=== PATIENT | male | born 1975 | race African-American/Black ===

== ENCOUNTER 2017-04-23 18:48 | Emergency (ER) | payer MEDICAID, OTHER ==
[~2017-04-23] VITALS: Ht 424.2 cm; Wt 82.0 kg
[2017-04-23 19:40] VITALS: BP 122/85
[2017-04-23] MEDS ORDERED: BACITRACIN ZINC OINT UDPKT TOP ONE (20:30)
== END 2017-04-23 21:01 | disposition home or self-care (01) ==
LOC: ER 20:14
DX: S50.11XA Contusion of right forearm, initial encounter (principal); S41.131A Puncture wound without foreign body of right upper arm, initial encounter; J45.909 Unspecified asthma, uncomplicated; F17.200 Nicotine dependence, unspecified, uncomplicated; F14.90 Cocaine use, unspecified, uncomplicated; W22.8XXA Striking against or struck by other objects, initial encounter; Y93.89 Activity, other specified; Y92.89 Other specified places as the place of occurrence of the external cause; Y99.8 Other external cause status
CPT/HCPCS: 99283

== ENCOUNTER 2024-10-06 17:42 | Inpatient (IN) | payer SELFPAY ==
[~2024-10-06] VITALS: Ht 182.9 cm; Wt 89.0 kg
[2024-10-06 20:57] LABS: BASOPHILS % 1.1 % (0.0-2.0); EOSINOPHILS % 5.4 % (0.0-5.0); HEMATOCRIT. 36.9 % (42.0-52.0); HEMOGLOBIN. 12.3 g/dL (14.0-18.0); LYMPHOCYTES % 26.7 % (20.0-50.0); MEAN CORPUSCULAR HEMOGLOBIN 28.4 pg (28.0-32.0); MEAN CORPUSCULAR HGB CONC 33.2 g/dL (31.0-37.0); MEAN CORPUSCULAR VOLUME 85.4 fL (80.0-94.0); MEAN PLATELET VOLUME 8.6 fl (7.4-10.4); MONOCYTES % 6.8 % (2.0-8.0); PLATELET 353 x1000/uL (130-400); RED BLOOD CELL COUNT 4.33 mill/uL (4.7-6.1); RED CELL DISTRIBUTION WIDTH 15.4 % (11.6-14.6); WHITE BLOOD COUNT 11.8 x1000/uL (4.5-11.0)
[2024-10-06 21:05] LABS: CHLORIDE 105 mEq/L (98-107); POTASSIUM 3.8 mEq/L (3.5-5.1); SODIUM 138 mEq/L (136-145)
[2024-10-06 21:06] LABS: CALCIUM 9.3 mg/dL (8.7-10.4); CARBON DIOXIDE 25 mEq/L (21-32)
[2024-10-06 21:11] LABS: CREATININE 0.9 mg/dL (0.6-1.3); GLUCOSE 91 mg/dL (70-105); UREA NITROGEN BLOOD 10 mg/dL (9-23)
[2024-10-06 21:12] LABS: TROPONIN I HIGH SENSITIVITY 8 ng/L (3.0-53)
[2024-10-06 21:13] LABS: ACETAMINOPHEN < 2 ug/mL (10-30); AMMONIA 50 uMol/L (<32)
[2024-10-06 21:15] LABS: ETHANOL BLOOD < 10 mg/dL (<10)
[2024-10-06] MEDS: LORAZEPAM 2MG/ML INJ IM ONE (21:29)
[2024-10-06] MEDS: DIPHENHYDRAMINE 50MG/ML VIAL IM ONE (21:30)
[2024-10-06] MEDS: HALOPERIDOL LACTATE 5MG/ML VIAL IM ONE (21:30)
[2024-10-06] MEDS: CEFTRIAXONE 1GM/50ML 50 ML IV ONE (21:41)
[2024-10-06] MEDS: AZITHROMYCIN 500MG/250ML 250 ML IV SCH (22:11)
[2024-10-06 22:30] VITALS: O2SAT 98
[2024-10-06] MEDS ORDERED: AMOX1TAB16 MT (22:30)
[2024-10-07] VITALS (8 sets, daily range): BP systolic 124–149; BP diastolic 64–80; PULSE 74–94; RESP 18–20; TEMP 33.28044–37.16964; O2SAT 95–100
[2024-10-07] MEDS ORDERED: IPRATROPIUM/ALBUTEROL 0.5-3(2.5)MG/3ML NEB HHN PRN (02:15)
[2024-10-07] MEDS ORDERED: ZOLPIDEM TARTRATE 5MG TABLET PO PRN (02:15)
[2024-10-07] MEDS ORDERED: ONDANSETRON HCL 4MG/2ML INJ IV PRN (02:15)
[2024-10-07] MEDS ORDERED: ACETAMINOPHEN 325MG TABLET PO PRN ×2 (02:15)
[2024-10-07] MEDS ORDERED: MAGNESIUM/ALUMINUM HYDROXIDE/SIMETHICONE 30ML UDC PO PRN (02:15)
[2024-10-07] MEDS ORDERED: CLONIDINE 0.1MG TABLET PO PRN (02:15)
[2024-10-07 02:51] LABS: CLARITY URINE CLEAR (CLEAR); COLOR URINE YELLOW (YELLOW); GLUCOSE URINE NEGATIVE (NEGATIVE); KETONES URINE NEGATIVE (NEGATIVE); LEUKOCYTE ESTERASE URINE NEGATIVE (NEGATIVE); NITRITE URINE NEGATIVE (NEGATIVE); OCCULT BLOOD URINE NEGATIVE (NEGATIVE); PH URINE 6.5 (4.5-8.0); PROTEIN URINE NEGATIVE (NEGATIVE); SPECIFIC GRAVITY URINE 1.012 (1.005-1.030)
[2024-10-07 03:02] LABS: *AMPHETAMINES SCREEN URINE NEGATIVE (NEGATIVE); *BARBITURATES SCREEN URINE NEGATIVE (NEGATIVE); *BENZODIAZEPINES SCREEN URINE NEGATIVE (NEGATIVE); *COCAINE SCREEN URINE PRESUMPTIVE POSITIVE (NEGATIVE); METHADONE URINE SCREEN NEGATIVE (NEGATIVE)
[2024-10-07 03:03] LABS: CANNABINOID URINE SCREEN NEGATIVE (NEGATIVE); ECSTASY MDMA SCREEN URINE NEGATIVE (NEGATIVE); OPIATES URINE SCREEN NEGATIVE (NEGATIVE); PHENCYCLIDINE URINE SCREEN PRESUMTIVE POSITIVE (NEGATIVE)
[2024-10-07] MEDS: SODIUM CHLORIDE 0.9% 3ML FLUSH IVF SCH (06:00)
[2024-10-07] MEDS: DIPHENHYDRAMINE 50MG/ML VIAL IV PRN (09:21)
[2024-10-08 08:00] VITALS: BP 133/68; PULSE 88; RESP 20; TEMP 37.00296; O2SAT 97
== END 2024-10-08 10:27 | disposition left against medical advice (07) | DRG 52 ==
LOC: ER 17:42 → 5WST 10-07 00:14 → EDBEDREQ 10-07 00:22 → 5WST 10-07 07:58 → 7EST 10-07 10:03
PROVIDERS: ADMIT Internal Medicine; ATTEND Internal Medicine
DX: G92.8 Other toxic encephalopathy (principal); J18.9 Pneumonia, unspecified organism; J45.909 Unspecified asthma, uncomplicated; Z53.29 Procedure and treatment not carried out because of patient's decision for other reasons; M25.551 Pain in right hip; Z59.00 Homelessness unspecified; Z78.1 Physical restraint status
CPT/HCPCS: 36415; 71045; 72170; 80048; 80305; 80307; 80320; 80329; 81003; 82140; 83605; 84145; 84484; 85025; 93005; 99285; J0456; J0696; J1200; J1630; J2060; G0480